=== PATIENT | male | born 1965 | race Caucasian/White ===

== ENCOUNTER → 2018-05-10 07:55 | Outpatient (CLI) | payer OTHER, MEDICAID, SELFPAY | PROVIDERS: PCP Family Medicine; Visit Provider Family Medicine | DX: M25.521 Pain in right elbow (principal); M25.522 Pain in left elbow; M54.32 Sciatica, left side ==

== ENCOUNTER → 2018-05-10 08:26 | Outpatient (CLI) | payer OTHER, MEDICAID, SELFPAY ==
--- NOTE | 2018-05-10 | DI.RAD.S_ITS ---
PROCEDURE: XR ELBOW RT MIN 3V INDICATIONS: BACK PAIN/ BILATERAL ELBOW PAIN TECHNIQUE: 3 views of the elbow were acquired. COMPARISON: [facility], CR, XR ELBOW LT MIN 3V, 05/10/2018, 8:42. FINDINGS: Bones: No fractures or dislocations. No suspicious bony lesions. Soft tissues: No elbow joint effusion. No suspicious soft tissue calcifications. IMPRESSION: No visualized acute fracture or dislocation. However, if clinical concern and/or pain persist, short interval imaging followup in 7-10 days is recommended, as occult injury cannot be definitively excluded. Dictated by: Veronique Tovar M.D. on 05/10/2018 at 10:54 Approved by: Veronique Tovar M.D. on 05/10/2018 at 10:54
--- NOTE | 2018-05-10 | DI.RAD.S_ITS ---
PROCEDURE: XR LUMBAR SPINE 2-3V INDICATIONS: BACK PAIN/ BILATERAL ELBOW PAIN TECHNIQUE: 3 views of the lumbar spine were acquired. COMPARISON: None. FINDINGS: Bones: 5 [id number] vertebrae are present. There is multilevel trace retrolisthesis throughout the lumbar spine. There is mild to moderate disc space narrowing throughout the lumbar spine most notable at L5-S1. Moderate foraminal narrowing is present at L4-5 and L5-S1, mild at L3-4. No vertebral body compression fractures. No suspicious bony lesions. Soft tissues: Overlying bowel gas pattern is normal. No suspicious soft tissue calcifications. IMPRESSION: Multilevel degenerative changes most significant at L5-S1 as above. Dictated by: Veronique oTvar M.D. on 05/10/2018 at 10:47 Approved by: Veronique Tovar M.D. on 05/10/2018 at 10:51
--- NOTE | 2018-05-10 | DI.RAD.S_ITS ---
PROCEDURE: XR ELBOW LT MIN 3V INDICATIONS: BACK PAIN/ BILATERAL ELBOW PAIN TECHNIQUE: 3 views of the elbow were acquired. COMPARISON: [facility], CR, XR ELBOW RT MIN 3V, 05/10/2018, 8:42. FINDINGS: Bones: Small areas of ossification are noted adjacent to the left medial humeral condyle. No suspicious bony lesions. Soft tissues: No elbow joint effusion. No suspicious soft tissue calcifications. IMPRESSION: Small areas of ossification are noted adjacent to the medial humeral condyle. This could represent old avulsion injury. Dictated by: Veronique Tovar M.D. on 05/10/2018 at 10:51 Approved by: Veronique Tovar M.D. on 05/10/2018 at 10:54
== END ==
PROVIDERS: PCP Family Medicine; Visit Provider Family Medicine
DX: M25.521 Pain in right elbow (principal); M25.522 Pain in left elbow; M54.32 Sciatica, left side; M47.817 Spondylosis without myelopathy or radiculopathy, lumbosacral region; M47.816 Spondylosis without myelopathy or radiculopathy, lumbar region
CPT/HCPCS: 72100; 73080

== ENCOUNTER 2018-05-27 09:41 | Emergency (ER) | payer OTHER, MEDICAID, SELFPAY ==
[2018-05-27 09:45] VITALS: BP 157/106; PULSE 88; RESP 14; TEMP 37; O2SAT 99
--- NOTE | 2018-05-27 09:57 | DI.RAD.S_ITS ---
PROCEDURE: XR RIBS RT MIN 3V W CXR 1V INDICATIONS: fall w/ right anterior chest wall pain. TECHNIQUE: 2 views of the right ribs were acquired, along with a single view chest. COMPARISON: None. FINDINGS: Surgical changes and devices: None. Bones and chest wall: No dislocations. No suspicious bony lesions. Overlying soft tissues appear unremarkable. There is a definite nondisplaced right lateral seventh rib fracture and a slightly displaced right lateral ninth rib fracture, without adjacent pneumothorax. Lungs and pleura: No pleural effusions or pneumothorax. Lungs appear clear. Mediastinum: Mediastinal contours appear normal. Heart size is normal. IMPRESSION: Definite right seventh and ninth acute appearing rib fractures without pneumothorax, minimally displaced each. There likely is also in eighth rib fracture between but not visualized by this study. Dictated by: Glenroy Peter M.D. on 05/27/2018 at 10:28 Approved by: Glenroy Peter M.D. on 05/27/2018 at 10:30
[2018-05-27 10:54] VITALS: BP 158/100; PULSE 68; RESP 18; O2SAT 98
--- NOTE | 2018-05-27 10:58 | ED.FALL ---
HPI - Fall General Chief Complaint: Fall Stated Complaint: Fell two days ago Time Seen by Provider: 05/27/18 09:43 Source: patient Mode of arrival: ambulatory Limitations: no limitations History of Present Illness HPI Narrative: 52M former smoker and daily drinker presents to the emergency department with a chief complaint of right anterior chest pain secondary to mechanical fall 2 days ago. He has sharp and stabbing right anterior chest pain, worse with deep breaths and movement, improvement with rest. He denies any hemoptysis. He denies any other injury and is otherwise well and free of complaint MD complaint: fall Onset (ago): day(s) Fall from: standing Fall witnessed: no Place fall occurred: home Loss of consciousness: unsure Prolonged down time: no Symptoms prior to fall: none Context: tripped/slipped and alcohol use Location of injury: chest Related Data Home Medications Medication Instructions Recorded Confirmed losartan-hydrochlorothiazide 1 tab PO DAILY 05/27/18 05/27/18 Previous Rx's Medication Instructions Recorded ketorolac 10 mg PO Q6H PRN #14 tab 05/27/18 Allergies Allergy/AdvReac Type Severity Reaction Status Date / Time No Known Drug Allergies Allergy Verified 05/27/18 09:56 Review of Systems Constitutional Denies chills, Denies fever(s), Denies lethargy and Denies weakness Eyes Denies change in vision, Denies eye discharge, Denies irritation and Denies loss of vision ENT Ears, Nose, Mouth, and Throat: Denies change in voice, Denies neck pain and Denies sore throat Cardiovascular Reports chest pain, Denies irregular heart rhythm, Denies lightheadedness, Denies palpitations, Denies dyspnea, Denies dyspnea on exertion and Denies orthopnea Respiratory Denies cough, Reports pain on inspiration, Reports pain with cough, Denies dyspnea, Denies dyspnea on exertion and Denies wheezing Gastrointestinal Gastrointestinal: Denies abdominal pain, Denies change in bowel habits, Denies diarrhea, Denies nausea and Denies vomiting Genitourinary Denies hematuria, Denies flank pain, Denies urinary incontinence and Denies urinary urgency Musculoskeletal Denies neck pain Integumentary/Breasts Denies pruritus, Denies erythema, Denies rash and Denies wounds Neurologic Denies confusion, Denies loss of vision and Denies weakness Psychiatric Denies anxiety, Denies confusion, Denies depression, Denies homicidal ideation and Denies suicidal ideation Endocrine Denies palpitations Hematologic/Lymphatic Denies easy bruising Allergic/Immunologic Denies wheezing Exam Narrative Exam Narrative: GEN: AOx3 and in mild distress, splinting his right-sided ribs with a pillow EYES: Pupils are equal, round, and reactive to light and accommodation. Extraoccular muscles are intact bilaterally. There is no subconjunctival hemorrhage or exudate. CHEST: Lungs are clear to auscultation bilaterally and free of wheezes, rales, or rhonchi. Heart rate is regular rhythm, there are no murmurs, clicks, rubs, or gallops. Sharp and stabbing right lateral chest pain to palpation ABD: Abdomen is soft and nontender. There is no guarding or rebound. Bowel sounds are normal in all 4 quadrants. There is no mass or organomegaly. EXT: Full painless ROM of all extremities with no loss of sensation or strength. SKIN: Warm, pink, and dry. No erythema or rash Initial Vital Signs Initial Vital Signs: Vital Signs Temperature 98.6 F 05/27/18 09:45 Pulse Rate 88 05/27/18 09:45 Respiratory Rate 14 05/27/18 09:45 Blood Pressure 157/106 H 05/27/18 09:45 Pulse Oximetry 99 05/27/18 09:45 [facility] Medical History Alcohol abuse (Acute) Hypertension (Acute) Social History (System 05/11/18 @ 11:06 by June Negron) Smoking Status: Current every day smoker Social History Smoking Status: Current every day smoker Course Orders Ordered: ED Orders 05/27/18 09:57 XR ribs RT min 3V w CXR1V Stat Vital Signs - 8 hr 05/27/18 09:45 05/27/18 10:54 Temperature 98.6 F Pulse Rate 88 68 Respiratory Rate 14 18 Blood Pressure 157/106 H Blood Pressure [Left Arm] 158/100 H Pulse Oximetry 99 98 MDM - Fall Imaging Data Chest x-ray: Radiologist's impression: XRay Report Signed Patient: NishantkarenZurdo LAURI#: [id number] : 1965Acct:[id number] Age/Sex: 52 / MDate of Service: 05/27/18 Loc: ED Accession Number: [id number] Procedure: XR ribs RT min 3V w CXR1V Ordering Provider: Van Wing D.O. PROCEDURE: XR RIBS RT MIN 3V W CXR 1V INDICATIONS: fall w/ right anterior chest wall pain. TECHNIQUE: 2 views of the right ribs were acquired, along with a single view chest. COMPARISON: None. FINDINGS: Surgical changes and devices: None. Bones and chest wall: No dislocations. No suspicious bony lesions. Overlying soft tissues appear unremarkable. There is a definite nondisplaced right lateral seventh rib fracture and a slightly displaced right lateral ninth rib fracture, without adjacent pneumothorax. Lungs and pleura: No pleural effusions or pneumothorax. Lungs appear clear. Mediastinum: Mediastinal contours appear normal. Heart size is normal. IMPRESSION: Definite right seventh and ninth acute appearing rib fractures without pneumothorax, minimally displaced each. There likely is also in eighth rib fracture between but not visualized by this study. Dictated by: Glenroy Peter M.D. on 05/27/2018 at 10:28 Discharge Plan Departure Patient Disposition: Home Clinical Impression: Fracture, ribs Qualifiers: Encounter type: initial encounter Rib fracture type: multiple ribs Fracture type: closed Laterality: right Qualified Code(s): S22.41XA - Multiple fractures of ribs, right side, initial encounter for closed fracture Discharge Date/Time: 05/27/18 11:00 Interventions: ED Discharge Assessment Last Done: 05/27/18 10:59 Activity Restrictions/Additional Instructions: *You have been diagnosed with [rib fractures ] *What to do: *Take medications as directed: Your prescription is been electronically transmitted to [facility] at your request *Follow up with your primary care provider in 2-3 days, call for an appointment. Let them know you were seen in the Emergency Department and that we ask that you be seen in follow up *Return to ER if you should have any new, worsening or concerning symptoms Prescriptions: New ketorolac 10 mg tablet 10 mg PO Q6H PRN (Reason: pain) Qty: 14 RF: 0 No Action losartan-hydrochlorothiazide 100-25 mg tablet 1 tab PO DAILY RF: 0 Referrals: Jeffery Santiago MD [Primary Care Provider] - Stand Alone Forms: Work Release Note
== END 2018-05-27 11:00 | disposition home or self-care (01) ==
PROVIDERS: Emergency Provider Emergency Medicine; PCP Family Medicine
DX: S22.41XA Multiple fractures of ribs, right side, initial encounter for closed fracture (principal); W19.XXXA Unspecified fall, initial encounter
CPT/HCPCS: 71101; 99282; 99283

== ENCOUNTER → 2019-04-19 09:00 | Outpatient (CLI) | payer OTHER, MEDICAID, SELFPAY ==
--- NOTE | 2019-04-19 | DI.US.S_ITS ---
PROCEDURE: US ABDOMEN COMPLETE INDICATIONS: ABNORMAL LABS TECHNIQUE: Real-time scanning was performed of the abdominal and retroperitoneal organs, with image documentation. COMPARISON: None. FINDINGS: Liver: Liver is normal in size and homogeneous in echotexture diffusely hyperechoic consistent with fatty infiltration. Gallbladder: The gallbladder contains sludge without identifiable stones. No pericholecystic free fluid or evidence of acute cholecystitis is present. Biliary ducts: Intrahepatic bile ducts are non-dilated. Extrahepatic bile duct caliber measures 5.8 mm. Normal is 6-7 mm or less in diameter, or 10 mm or less post-cholecystectomy. Pancreas: Poorly seen due to bowel gas. Spleen: Spleen is normal in size and homogeneous in echotexture. Kidneys: Kidneys are normal in size and echotexture. Right kidney measures 12.7 cm long; left kidney measures 12.7 cm long. No hydronephrosis or nephrolithiasis. No solid masses. Aorta: Visualized aorta is normal in caliber at less than 3 cm. Iliacs: Proximal common iliac arteries are normal in caliber at less than 2.5 cm. IVC: Intrahepatic inferior vena cava is patent. Miscellaneous: No free abdominal fluid. IMPRESSION: Relatively prominent fatty infiltration throughout the liver, sludge within the gallbladder lumen but there is no evidence of acute cholecystitis or biliary obstruction. Dictated by: Glenroy Peter M.D. on 04/19/2019 at 14:06 Approved by: Glenroy Peter M.D. on 04/19/2019 at 14:08
== END ==
PROVIDERS: PCP Family Medicine; Referring Provider Family Medicine; Visit Provider Family Medicine
DX: R74.0 Nonspecific elevation of levels of transaminase and lactic acid dehydrogenase [LDH] (principal); K82.8 Other specified diseases of gallbladder; K76.0 Fatty (change of) liver, not elsewhere classified
CPT/HCPCS: 76700

== ENCOUNTER → 2020-01-19 13:25 | Outpatient (CLI) | payer OTHER, MEDICAID, SELFPAY ==
--- NOTE | 2020-01-19 | DI.NM.S_ITS ---
PROCEDURE: NM HIDA WITH CCK PHARMACEUTICAL: 5.6 mCi Tc-99m mebrofenin IV; 2.4 mcg CCK IV. INDICATIONS: Epigastric pain TECHNIQUE: Following intravenous administration of Tc-99m mebrofenin, sequential anterior abdominal images were obtained. To evaluate the contractile response of the gallbladder in response to Cholecystokinin (CCK), sincalide (0.02 ?g/kg) was administered by slow intravenous infusion approximately 60 minutes after the administration of the radiopharmaceutical. Sequential imaging was continued for 30 minutes after the start of CCK infusion. Gallbladder ejection fraction was calculated. COMPARISON: [facility], , US ABDOMEN COMPLETE, 04/19/2019, 9:16. FINDINGS: Biliary scan: There is normal tracer uptake and excretion by the liver. There is normal visualization of the intrahepatic ducts, common bile duct, and gallbladder. There is normal tracer transit into the duodenum. Noted is made of mild bile reflux into the stomach. CCK stimulation: There is normal contractile response of the gallbladder to CCK infusion. The calculated gallbladder ejection fraction is 87%; normal values are above 35%. IMPRESSION: 1. Normal filling of gallbladder. No evidence for acute cholecystitis. 2. Normal contractile response of gallbladder to CCK stimulation. Dictated by: Chad Vargas M.D. on 01/19/2020 at 15:52 Approved by: Chad Vargas M.D. on 01/19/2020 at 15:54
== END ==
PROVIDERS: PCP Family Medicine; Referring Provider Family Medicine; Visit Provider Family Medicine
DX: R10.13 Epigastric pain (principal)
CPT/HCPCS: 78227; A9537; J2805

== ENCOUNTER 2021-03-21 11:29 | Emergency (ER) | payer OTHER, MEDICAID, SELFPAY ==
[2021-03-21 11:53] VITALS: BP 120/67; PULSE 101; RESP 14; TEMP 37.1; O2SAT 96; BMI 38.1
[2021-03-21 12:14] LABS: Amorphous Sediment Urine 1+; RBC Urine None Seen (0-5/HPF); WBC Urine 5-10/HPF (0-5/HPF)
[2021-03-21 12:15] LABS: Bacteria Urine None Seen
[2021-03-21 13:26] LABS: COVID19 -Nasal RAPID Negative (Negative)
--- NOTE | 2021-03-21 14:42 | DI.CT.S_ITS ---
PROCEDURE: CT ABDOMEN PELVIS WO CON INDICATIONS: Prostate enlarged - BACK PAIN - DARK URINE TECHNIQUE: Noncontrast 5 mm thick sections acquired from the diaphragms to the symphysis. 5 mm coronal and sagittal reformats were then performed. For radiation dose reduction, the following was used: automated exposure control, adjustment of mA and/or kV according to patient size. COMPARISON: None. FINDINGS: Image quality: Excellent. ABDOMEN: Lung bases: Lung bases are clear. Heart size is normal. Mild scattered atherosclerotic calcifications of the coronary arteries are noted. Solid organs: Liver is enlarged in size. There is diffuse hypoattenuation of the liver parenchyma relative to the spleen compatible with hepatic steatosis. Gallbladder is mildly distended. There is a small punctate density near the gallbladder fundus likely representing a gallstone. No CT evidence for acute cholecystitis . Pancreas is normal in contours. Spleen is normal in size. No adrenal nodules. Kidneys are normal in size, without hydronephrosis. Bilateral renal stones are seen measuring up to 7 mm on the right and 3 mm on the left. Both ureters are normal in course and caliber. No ureteral stones seen. No urinary bladder stones identified. Peritoneum and bowel: Unenhanced bowel loops demonstrate normal wall thickness and caliber. No free fluid or air. Scattered colonic diverticula without evidence for acute diverticulitis. Normal appendix. Nodes and vessels: No retroperitoneal or mesenteric adenopathy by size criteria. Aorta and inferior vena cava are normal in caliber. Atherosclerotic calcifications of the abdominal aorta. Miscellaneous: No ventral hernias. PELVIS: Genitourinary: Bladder wall thickness is normal. No bladder stone seen. There is mild prostatomegaly. Miscellaneous: No pelvic adenopathy. Small bilateral fat containing inguinal hernias, larger on the left without acute inflammatory changes. Bones: No acute vertebral body compression fractures. Multilevel spondylitic changes throughout the imaged spine. No suspicious osseous lesions. IMPRESSION: 1. Bilateral nonobstructing nephroliths measuring up to 7 mm on the right and 3 mm on the left. No evidence for obstructive uropathy. No ureteral stones identified. 2. Hepatic steatosis. 3. Cholelithiasis without CT evidence for acute cholecystitis. 4. Colonic diverticulosis without acute diverticulitis. 5. Atherosclerosis. Dictated by: Henrry Cagle M.D. on 03/21/2021 at 15:12 Approved by: Henrry Cagle M.D. on 03/21/2021 at 15:20
--- NOTE | 2021-03-21 15:07 | ED.MALEGU ---
HPI - Male Genitourinary <Ryan Sotomayor PA-C - Last Filed: 03/21/21 19:25> General Chief complaint: Urogenital-Male Stated complaint: Incontenince Time Seen by Provider: 03/21/21 14:22 Source: patient Mode of arrival: Ambulatory History of Present Illness HPI Narrative: Patient is a 55-year-old male who presents to the ED reporting a decrease in urine output. He reports yesterday morning he had a small amount of urine in the toilet of which he was a dark color he became concerned contacted his PCP was seen today. He was told to come to the emergency room for further evaluation. He denies any abdominal pain nausea vomiting or diarrhea however he does admit that it is difficult to start his urination stream and in the stream is small. He also reports that he has been a 6 pack a day alcoholic for many years and has recently stopped drinking as of 2 days ago. He also has decreased his usage of cigarettes, he reports pack and a half to 2 packs a day and over the last 2 days has only smoked about 10 cigarettes. No reported headache blurred vision cough shortness of breath congestion. No recent trauma or fall Related Data Home Medications Medication Instructions Recorded Confirmed losartan 100 1 tab PO DAILY 05/27/18 05/27/18 mg-hydrochlorothiazide 25 mg tablet Previous Rx's Medication Instructions Recorded ketorolac 10 mg tablet 10 mg PO Q6H PRN #14 tab 05/27/18 Allergies Allergy/AdvReac Type Severity Reaction Status Date / Time No Known Drug Allergies Allergy Verified 03/21/21 11:53 Review of Systems <Ryan Sotomayor PA-C - Last Filed: 03/21/21 19:25> Review of Systems ROS Unobtainable: All systems reviewed & are unremarkable except as noted in HPI and below Constitutional Constitutional: Denies chills, Denies fatigue, Denies fever(s), Denies frequent falls, Denies lethargy and Denies weakness Eyes Eyes: Denies change in vision, Denies eye discharge, Denies irritation and Denies loss of vision ENT Ears, Nose, Mouth, and Throat: Denies change in voice, Denies dizziness, Denies neck pain, Denies sore throat and Denies throat swelling Cardiovascular Cardiovascular: Denies chest pain, Denies irregular heart rhythm, Denies lightheadedness, Denies palpitations, Denies dyspnea, Denies dyspnea on exertion and Denies orthopnea Respiratory Respiratory: Denies cough, Denies dyspnea, Denies dyspnea on exertion and Denies wheezing Gastrointestinal Gastrointestinal: Denies abdominal pain, Denies change in bowel habits, Denies diarrhea, Denies nausea and Denies vomiting Genitourinary Genitourinary: Reports hematuria, Reports difficulty urinating, Denies flank pain, Denies urinary incontinence and Denies urinary urgency Musculoskeletal Musculoskeletal: Denies back pain, Denies muscle weakness, Denies neck pain, Denies numbness and Denies tingling Integumentary/Breasts Skin/Breast: Denies pruritus, Denies erythema, Denies rash and Denies wounds Neurologic Neurologic: Denies behavioral changes, Denies confusion, Denies dizziness, Denies frequent falls, Denies loss of vision, Denies numbness, Denies tingling and Denies weakness Psychiatric Psychiatric: Denies anxiety, Denies behavioral changes, Denies confusion, Denies depression, Denies homicidal ideation and Denies suicidal ideation Endocrine Endocrine: Denies fatigue, Denies flushing and Denies palpitations Hematologic/Lymphatic Hematologic/Lymphatic: Denies easy bruising Allergic/Immunologic Allergic/Immunologic: Denies urticaria, Denies throat swelling and Denies wheezing Patient History <Ryan Sotomayor PA-C - Last Filed: 03/21/21 19:25> Medical History (Updated 03/21/21 @ 19:25 by Ryan Sotomayor PA-C) Alcohol abuse Hypertension Social History Smoking Status: Current every day smoker Smoking Status: Current every day smoker alcohol intake frequency: 3 or more drinks per day Substance Use Type: marijuana Exam <Ryan Sotomayor PA-C - Last Filed: 03/21/21 19:25> Initial Vital Signs Initial Vital Signs: Vital Signs Temperature 98.7 F 03/21/21 11:53 Pulse Rate 101 H 03/21/21 11:53 Respiratory Rate 14 03/21/21 11:53 Blood Pressure 120/67 03/21/21 11:53 Pulse Oximetry 96 03/21/21 11:53 Const General: cooperative, healthy appearing and comfortable Nutritional Appearance: average body habitus HENMT Head: normal to inspection and normocephalic Ears: hearing grossly normal bilaterally Nose: external nose normal Face and sinus: normal facial exam Resp Effort & Inspection: normal respiratory effort Auscultation: clear to auscultation bilaterally Percussion: percussion normal Cardio Palpation: normal PMI Rate: regular rate Rhythm: regular rhythm Heart Sounds: S1 normal and S2 normal GI Inspection: normal to inspection Palpation: soft Percussion: normal to percussion Auscultation: normal bowel sounds Rectal Exam: visual inspection normal Course <Ryan Sotomayor PA-C - Last Filed: 03/21/21 19:25> Orders Ordered: Discontinued Medications Sodium Chloride (Normal Saline 0.9%) 1,000 mls @ 1,000 mls/hr IV BOLUS ONE Stop: 03/21/21 16:54 Last Infusion: 03/21/21 17:02 Dose: 0 mls/hr Documented by: Admin: 03/21/21 15:55 Dose: 1,000 mls/hr Documented by: KIKI Sodium Chloride (Normal Saline 0.9%) 1,000 mls @ 1,000 mls/hr IV BOLUS ONE Stop: 03/21/21 18:24 Last Infusion: 03/21/21 19:07 Dose: 0 mls/hr Documented by: Admin: 03/21/21 17:28 Dose: 1,000 mls/hr Documented by: KIKI Reevaluation(s) Reevaluation #1: Patient responding well to IV fluids reporting that his energy level is increased he was able to urinate after a L of fluid. Vital Signs Vital signs: Vital Signs - 8 hr 03/21/21 11:53 Temperature 98.7 F Pulse Rate 101 H Respiratory Rate 14 Blood Pressure 120/67 Pulse Oximetry 96 MDM - Male Genitourinary <Ryan Sotomayor PA-C - Last Filed: 03/21/21 19:25> Differential Diagnosis Differential diagnosis: Likely other Lab Data Result diagrams: 03/21/21 15:10 03/21/21 18:47 Labs: Lab Results 03/21/21 03/21/21 03/21/21 Range/Units 11:44 11:58 15:10 WBC 7.3 (4.5-11.0) X10^3/uL RBC 4.87 (4.5-5.9) X10^6/uL Hgb 15.0 (13.5-17.5) g/dL Hct 43.1 (41-53) % MCV 88.6 (80-100) fL MCH 30.8 (26-34) PG MCHC 34.8 (30-36) % RDW 13.3 (11.6-14.8) % Plt Count 127 L (150-400) X10^3/uL Neut % (Auto) 56.9 (50-75) % Lymph % (Auto) 32.1 (25-40) % [place] % (Auto) 8.4 (3-14) % Eos % (Auto) 1.8 L (2-4) % Baso % (Auto) 0.8 (0-2) % Neut # (Auto) 4200 (6739-0543) /uL Lymph # (Auto) 2400 (8441-0000) /uL [place] # (Auto) 600 (0-900) /uL Eos # (Auto) 100 (0-450) /uL Baso # (Auto) 100 (0-100) /uL Sodium (137-145) mmol/L Potassium (3.4-5.1) mmol/L Chloride (98-107) mmol/L Carbon Dioxide (22-32) mmol/L BUN (9-20) mg/dL Creatinine (0.66-1.25) mg/dL Estimated GFR (>60) mL/min BUN/Creatinine Ratio (6-22) Glucose (70-100) mg/dL Calcium (8.4-10.2) mg/dL Total Bilirubin (0.2-1.3) mg/dL AST (17-59) IU/L ALT (<50) IU/L Alkaline Phosphatase (38-126) U/L Total Protein (6.3-8.2) g/dL Albumin (3.5-5.0) g/dL Globulin (1.7-4.1) g/dL Albumin/Globulin Ratio (1.0-2.8) Urine RBC None seen (0-5/HPF) Urine WBC 5-10/hpf H (0-5/HPF) Amorphous Sediment 1+ Urine Bacteria None seen (None) Ur Culture Indicated? Culture not indicate SARS-CoV-2 (PCR) Negative (Negative) 03/21/21 03/21/21 Range/Units 15:10 18:47 WBC (4.5-11.0) X10^3/uL RBC (4.5-5.9) X10^6/uL Hgb (13.5-17.5) g/dL Hct (41-53) % MCV (80-100) fL MCH (26-34) PG MCHC (30-36) % RDW (11.6-14.8) % Plt Count (150-400) X10^3/uL Neut % (Auto) (50-75) % Lymph % (Auto) (25-40) % [place] % (Auto) (3-14) % Eos % (Auto) (2-4) % Baso % (Auto) (0-2) % Neut # (Auto) (9257-6382) /uL Lymph # (Auto) (1714-5183) /uL [place] # (Auto) (0-900) /uL Eos # (Auto) (0-450) /uL Baso # (Auto) (0-100) /uL Sodium 130 L 132 L (137-145) mmol/L Potassium 3.7 3.2 L (3.4-5.1) mmol/L Chloride 99 104 (98-107) mmol/L Carbon Dioxide 24 24 (22-32) mmol/L BUN 21 H 20 (9-20) mg/dL Creatinine 3.51 H 3.00 H (0.66-1.25) mg/dL Estimated GFR 18.3 L 21.9 L (>60) mL/min BUN/Creatinine Ratio 6.0 6.7 (6-22) Glucose 110 H 100 (70-100) mg/dL Calcium 9.5 8.8 (8.4-10.2) mg/dL Total Bilirubin 1.6 H 1.5 H (0.2-1.3) mg/dL AST 221 H 180 H (17-59) IU/L ALT 147 H 122 H (<50) IU/L Alkaline Phosphatase 131 H 105 (38-126) U/L Total Protein 6.9 6.3 (6.3-8.2) g/dL Albumin 3.9 3.3 L (3.5-5.0) g/dL Globulin 3.0 3.0 (1.7-4.1) g/dL Albumin/Globulin Ratio 1.3 1.1 (1.0-2.8) Urine RBC (0-5/HPF) Urine WBC (0-5/HPF) Amorphous Sediment Urine Bacteria (None) Ur Culture Indicated? SARS-CoV-2 (PCR) (Negative) Urine Dip Bedside Urine Glucose Negative Bedside Urine Bilirubin - Negative Bedside Urine Ketone - Negative Urine Specific [place] 1.020 Bedside Urine Occult Blood - Negative Bedside Urine pH 5.5 Bedside Urine Protein + 30 Bedside Urine Urobilinogen - Negative Bedside Urine Nitrite - Negative Bedside Urine Leukocytes - Negative Esterase Imaging Data CT scan - abdomen/pelvis: Radiologist's Impression: PROCEDURE:? CT ABDOMEN PELVIS WO CON ? INDICATIONS:? Prostate enlarged - BACK PAIN - DARK URINE ? TECHNIQUE:? Noncontrast 5 mm thick sections acquired from the diaphragms to the symphysis.? 5 mm coronal and sagittal reformats were then performed.? For radiation dose reduction, the following was used:? automated exposure control, adjustment of mA and/or kV according to patient size.? ? COMPARISON:? None. ? FINDINGS:? Image quality:? Excellent.? ? ABDOMEN:? Lung bases:? Lung bases are clear.? Heart size is normal.? Mild scattered atherosclerotic calcifications of the coronary arteries are noted.? ? Solid organs:? Liver is enlarged in size.? There is diffuse hypoattenuation of the liver parenchyma relative to the spleen compatible with hepatic steatosis. Gallbladder is mildly distended.? There is a small punctate density near the gallbladder fundus likely representing a gallstone.? No CT evidence for acute cholecystitis .? Pancreas is normal in contours.? Spleen is normal in size.? No adrenal nodules.? Kidneys are normal in size, without hydronephrosis.? Bilateral renal stones are seen measuring up to 7 mm on the right and 3 mm on the left.? Both ureters are normal in course and caliber.? No ureteral stones seen.? No urinary bladder stones identified. ? Peritoneum and bowel:? Unenhanced bowel loops demonstrate normal wall thickness and caliber.? No free fluid or air.? Scattered colonic diverticula without evidence for acute diverticulitis.? Normal appendix. ? Nodes and vessels:? No retroperitoneal or mesenteric adenopathy by size criteria.? Aorta and inferior vena cava are normal in caliber.? Atherosclerotic calcifications of the abdominal aorta. ? Miscellaneous:? No ventral hernias.? ? ? PELVIS:? Genitourinary:? Bladder wall thickness is normal.? No bladder stone seen.? There is mild prostatomegaly. ? Miscellaneous:? No pelvic adenopathy.? Small bilateral fat containing inguinal hernias, larger on the left without acute inflammatory changes. ? Bones:? No acute vertebral body compression fractures. Multilevel spondylitic changes throughout the imaged spine.? No suspicious osseous lesions. ? IMPRESSION:? ? 1. Bilateral nonobstructing nephroliths measuring up to 7 mm on the right and 3 mm on the left.? No evidence for obstructive uropathy.? No ureteral stones identified. ? 2. Hepatic steatosis. ? 3. Cholelithiasis without CT evidence for acute cholecystitis. ? 4. Colonic diverticulosis without acute diverticulitis. ? 5.? Atherosclerosis. ? ? Dictated by: Henrry Cagle M.D. on 03/21/2021 at 15:12 ? ? Approved by: Henrry Cagle M.D. on 03/21/2021 at 15:20?? MDM Narrative Medical decision making narrative: Patient was evaluated today for decreased urine output patient was seen at his PCP office today and was told to come to the emergency room. Patient reports that yesterday he had a small amount of urine that came out. He denies any significant pain no penile discharge or dysuria. He reports having difficulty with starting urination and weak stream and his urine appeared dark. His workup today revealed evidence of impaired renal function and impaired liver function. In discussing this with the patient he is aware of his previous kidney difficulties as well as his liver issues. He is a chronic alcoholic and a 2 pack-a-day smoker for many years. I counseled patient about quitting drinking and options that he should consider and he will need to explore those options on an outpatient basis. Patient was given 2 L of IV fluids and stated that he feels significantly better. Repeat chemistry shows an improvement in his renal function however it is still significantly impaired. Patient is requesting to be discharged home and will follow-up with his PCP for referral to nephrology. Discharge Plan Departure Patient Disposition: Home Clinical Impression: Acute renal impairment, Abnormal finding on liver function Instructions: DI for Kidney Failure, DI for Alcohol Use Disorder, DI for Nonalcoholic Fatty Liver Disease Activity Restrictions/Additional Instructions: You were evaluated today for your kidney and liver function. Is is essential that you quit drinking alcohol and that she seek supportive treatment for your drinking problem. 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 You need to contact her PCP on Wednesday and make arrangements for follow-up and referral. Increase your p.o. fluid intake avoid any further alcohol consumption return to the ED as needed Prescriptions: No Action losartan-hydrochlorothiazide 100-25 mg tablet 1 tab PO DAILY 0RF ketorolac 10 mg tablet 10 mg PO Q6H PRN (Reason: pain) Qty: 14 0RF Referrals: Jeffery Santiago MD [Primary Care Provider] -
[2021-03-21 15:20] LABS: Add Manual Diff / Slide Review NO; Basophils Absolute Auto 100 /uL (0-100); Basophils Percent Auto 0.8 % (0-2); Eosinophils Absolute Auto 100 /uL (0-450); Eosinophils Percent Auto 1.8 % (2-4); Hematocrit 43.1 % (41-53); Lymphocytes Absolute Auto 2400 /uL (1100-4500); Lymphocytes Percent Auto 32.1 % (25-40); Mean Corpuscular HGB Conc 34.8 % (30-36); Mean Corpuscular Hemoglobin 30.8 PG (26-34); Mean Corpuscular Volume 88.6 fL (80-100); Monocytes Absolute Auto 600 /uL (0-900); Monocytes Percent Auto 8.4 % (3-14); Neutrophils Absolute Auto 4200 /uL (1500-7000); Neutrophils Percent Auto 56.9 % (50-75); Platelet Count 127 X10^3/uL (150-400); Red Blood Cell Count 4.87 X10^6/uL (4.5-5.9); Red Cell Distribution Width 13.3 % (11.6-14.8); White Blood Cell Count 7.3 X10^3/uL (4.5-11.0)
[2021-03-21 15:34] LABS: Alanine Aminotransferase 147 IU/L (<50); Albumin 3.9 g/dL (3.5-5.0); Albumin Globulin Ratio 1.3 (1.0-2.8); Alkaline Phosphatase 131 U/L (38-126); Aspartate Aminotransferase 221 IU/L (17-59); Bilirubin Total 1.6 mg/dL (0.2-1.3); Blood Urea Nitrogen 21 mg/dL (9-20); Calcium 9.5 mg/dL (8.4-10.2); Carbon Dioxide 24 mmol/L (22-32); Chloride 99 mmol/L (98-107); Estimated Glomerular Filt Rate 18.3 mL/min (>60); Glucose 110 mg/dL (70-100); HEMOLYSIS < 15 (0-50); Potassium 3.7 mmol/L (3.4-5.1); Sodium 130 mmol/L (137-145); Total Protein 6.9 g/dL (6.3-8.2)
[2021-03-21] MEDS: SODIUM CHLORIDE 0.9% 1,000 ML 1000 ML IV ×2 (15:55→17:28)
[2021-03-21 19:05] LABS: Alanine Aminotransferase 122 IU/L (<50); Albumin 3.3 g/dL (3.5-5.0); Albumin Globulin Ratio 1.1 (1.0-2.8); Alkaline Phosphatase 105 U/L (38-126); Aspartate Aminotransferase 180 IU/L (17-59); BUN Creatinine Ratio 6.7 (6-22); Bilirubin Total 1.5 mg/dL (0.2-1.3); Blood Urea Nitrogen 20 mg/dL (9-20); Calcium 8.8 mg/dL (8.4-10.2); Carbon Dioxide 24 mmol/L (22-32); Chloride 104 mmol/L (98-107); Estimated Glomerular Filt Rate 21.9 mL/min (>60); Glucose 100 mg/dL (70-100); HEMOLYSIS < 15 (0-50); Potassium 3.2 mmol/L (3.4-5.1); Sodium 132 mmol/L (137-145); Total Protein 6.3 g/dL (6.3-8.2)
[2021-03-21 19:34] VITALS: BP 119/77; PULSE 101; RESP 20; O2SAT 96
== END 2021-03-21 19:35 | disposition home or self-care (01) ==
PROVIDERS: Emergency Medicine; Emergency Provider Physician Assistant; PCP Family Medicine
DX: N28.9 Disorder of kidney and ureter, unspecified (principal); K76.89 Other specified diseases of liver; Z20.822 Contact with and (suspected) exposure to COVID-19; Z72.89 Other problems related to lifestyle
CPT/HCPCS: 36415; 51798; 74176; 80053; 81003; 81015; 85025; 87086; 87635; 96360; 96361; 99284; C9803

== ENCOUNTER 2022-03-30 09:36 | Emergency (ER) | payer OTHER, MEDICAID, SELFPAY ==
[2022-03-30] VITALS (14 sets, daily range): BP systolic 115–141; BP diastolic 69–93; PULSE 62–81; RESP 14–25; TEMP 36.4; O2SAT 93–97; BMI 36.9
--- NOTE | 2022-03-30 09:52 | DI.RAD.S_ITS ---
PROCEDURE: XR CHEST 2V INDICATIONS: SOB TECHNIQUE: 2 views of the chest were acquired. COMPARISON: None. FINDINGS: Surgical changes and devices: None. Lungs and pleura: Lungs are clear. No pleural effusions or pneumothorax. Mediastinum: Mediastinal contours are normal. Heart size is normal. Bones and chest wall: No suspicious bony abnormalities. Soft tissues appear unremarkable. IMPRESSION: No acute cardiopulmonary pathology. Dictated by: Jin Brandt M.D. on 03/30/2022 at 10:08 Approved by: Jin Brandt M.D. on 03/30/2022 at 10:10
[2022-03-30 10:00] LABS: Add Manual Diff / Slide Review NO; Basophils Absolute Auto 0 /uL (0-100); Basophils Percent Auto 0.6 % (0-2); Eosinophils Absolute Auto 200 /uL (0-450); Eosinophils Percent Auto 2.5 % (2-4); Hemoglobin 16.6 g/dL (13.5-17.5); Lymphocytes Absolute Auto 1400 /uL (1100-4500); Lymphocytes Percent Auto 19.2 % (25-40); Mean Corpuscular HGB Conc 34.5 % (30-36); Mean Corpuscular Hemoglobin 31.2 PG (26-34); Mean Corpuscular Volume 90.4 fL (80-100); Monocytes Absolute Auto 600 /uL (0-900); Monocytes Percent Auto 8.2 % (3-14); Neutrophils Absolute Auto 5100 /uL (1500-7000); Neutrophils Percent Auto 69.5 % (50-75); Platelet Count 185 X10^3/uL (150-400); Red Blood Cell Count 5.31 X10^6/uL (4.5-5.9); Red Cell Distribution Width 13.5 % (11.6-14.8); White Blood Cell Count 7.4 X10^3/uL (4.5-11.0)
[2022-03-30 10:09] LABS: Alanine Aminotransferase 40 IU/L (<50); Albumin 4.8 g/dL (3.5-5.0); Albumin Globulin Ratio 1.4 (1.0-2.8); Alkaline Phosphatase 106 U/L (38-126); Aspartate Aminotransferase 41 IU/L (17-59); BUN Creatinine Ratio 9.7 (6-22); Bilirubin Total 0.8 mg/dL (0.2-1.3); Blood Urea Nitrogen 7 mg/dL (9-20); C-Reactive Protein Quant < 0.5 mg/dL (<1.0); Calcium 9.8 mg/dL (8.4-10.2); Carbon Dioxide 23 mmol/L (22-32); Chloride 103 mmol/L (98-107); Creatine Kinase 85 U/L (55-170); Estimated Glomerular Filt Rate > 60 mL/min (>60); Globulin 3.4 g/dL (1.7-4.1); Glucose 102 mg/dL (70-100); HEMOLYSIS 17 (0-50); Lipase 596 U/L (23-300); Sodium 137 mmol/L (137-145); Total Protein 8.2 g/dL (6.3-8.2)
[2022-03-30 10:18] LABS: NT-proBNP (BNP-Adult 18+) 39 pg/mL (<125); Troponin I < 0.012 ng/mL (0.01-0.034)
--- NOTE | 2022-03-30 10:25 | ED_ITS ---
HPI - Chest Pain General Chief Complaint: Chest Pain Stated Complaint: Pain in chest, sweating last night Time Seen by Provider: 03/30/22 09:45 Source: patient Mode of arrival: Ambulatory Limitations: no limitations History of Present Illness HPI narrative: 56-year-old male smoker and heavy drinker presents with a chief complaint of a brief episode of sharp and stabbing central chest pain that started last night at about 4:00 p.m. and lasted 15 minutes. He was at rest when it started and he continued to be at rest for the duration. He denies any obvious provocation, palliation or radiation of his symptoms. He denies dizziness, weakness or lightheadedness but states that he felt hot before it happened so he took his sweatshirt off. He denies any cough or hemoptysis. He is had no nausea, vomiting or diarrhea. He states that he has been fatigued but denies any obvious exertional symptoms or exercise intolerance. He denies recent travel or injury. He states that he had eaten a large spaghetti dinner a few hours prior to this and if anything states that his symptoms felt burning in nature Related Data Home Medications Medication Instructions Recorded Confirmed losartan 100 1 tab PO DAILY 05/27/18 05/27/18 mg-hydrochlorothiazide 25 mg tablet Previous Rx's Medication Instructions Recorded ketorolac 10 mg tablet 10 mg PO Q6H PRN pain #14 tabs 05/27/18 hydrocodone 5 mg-acetaminophen 325 1 tab PO Q4-6H PRN pain #10 tabs 03/30/22 mg tablet ondansetron 4 mg disintegrating 4 mg PO TID-QID PRN nausea and 03/30/22 tablet vomiting #10 tabs Allergies Allergy/AdvReac Type Severity Reaction Status Date / Time No Known Drug Allergies Allergy Verified 03/21/21 11:53 Review of Systems Review of Systems Narrative: GENERAL: Denies chills, fatigue, malaise, fever, sweats. HEENT: Denies sinus pain, ear pain, sore throat, difficulty swallowing, dizziness. RESPIRATORY: Denies dyspnea, cough, wheezing, hemoptysis, sputum. CARDIOVASCULAR: See HPI GASTROINTESTINAL: Denies nausea, vomiting, abdominal pain, diarrhea, constipation, melena. : Denies dysuria, frequency, incontinence, hematuria, urinary retention. MUSCULOSKELETAL: denies weakness, joint pain, or bony pain SKIN: Denies rash, skin lesions, or other NEUROLOGIC: Denies weakness, headache, numbness, change in speech, confusion, seizures, incoordination. PSYCHIATRIC: No concerning psychosocial issues. 12 point review of systems is negative except for those stated above Patient History Medical History (Updated 03/31/22 @ 06:44 by Van Wing DO) Alcohol abuse Hypertension Social History Smoking Status: Current every day smoker Smoking Status: Current every day smoker alcohol intake frequency: 3 or more drinks per day Substance Use Type: marijuana Exam Narrative Exam Narrative: GENERAL: [56] year old patient appears stated age. Well-developed patient, in mild distress. HEAD: Atraumatic. Normocephalic. EYES: Pupils equal round and reactive. Extraocular motions intact. No scleral icterus. No injection or drainage. ENT: Nose without bleeding, purulent drainage. Throat without erythema, tonsillar hypertrophy or exudate. Airway patent. NECK: Trachea midline. Non tender CARDIOVASCULAR: Regular rate and rhythm without murmurs, gallops, or rubs. RESPIRATORY: Clear to auscultation. Breath sounds equal bilaterally. No wheezes, rales, or rhonchi. GASTROINTESTINAL: Abdomen soft, non-tender, nondistended. EXTREMITIES: No edema or joint tenderness. BACK: Nontender without deformity or crepitance. No flank tenderness. NEURO: AOx3. SKIN: No rash or erythema of visible areas Initial Vital Signs Initial Vital Signs: Vital Signs Temperature 97.6 F 03/30/22 09:43 Pulse Rate 81 03/30/22 09:43 Respiratory Rate 19 03/30/22 09:43 Blood Pressure 141/93 H 03/30/22 09:43 Pulse Oximetry 94 03/30/22 09:43 Oxygen Delivery Method 03/30/22 09:43 Scores HEART Score Heart Score history: Slightly Suspicious Heart Score EKG: Non-Specific repolarization disturbance Heart Score Age: 45-64 years old Heart Score risk factors: 1-2 risk factors Heart Score troponin: < or = to normal limit Heart Score Total: 3 Course Orders Ordered: ED Orders 03/30/22 09:45 C-Reactive Protein Quant Stat Complete Blood Count AUTO DIFF Stat Comprehensive Metabolic Panel Stat Lipase Stat NT-proBNP (BNP-Adult 18+) Stat Troponin & CK Cardiac Panel Stat 03/30/22 09:52 XR chest 2V Stat 03/30/22 09:53 EKG-12 Lead Stat 03/30/22 10:30 US abdomen limited Stat 03/30/22 11:58 COVID19 -Nasal RAPID/Pre-Proc Stat Consultations Consultation #1: discussed with Dr. Salgado. We have discussed history and physical, labs and imaging, she recommends clear liquids, then low-fat diet, symptomatic treatment and referral to her office for outpatient follow-up Vital Signs Vital signs: Vital Signs - 8 hr 03/30/22 09:43 03/30/22 09:44 03/30/22 09:44 Temperature 97.6 F Pulse Rate 81 79 Respiratory Rate 19 Blood Pressure 141/93 H 141/93 H Pulse Oximetry 94 95 Oxygen Delivery Method Room Air 03/30/22 09:45 03/30/22 10:05 03/30/22 10:15 Temperature Pulse Rate 81 68 65 Respiratory Rate 14 22 20 Blood Pressure Pulse Oximetry 95 96 95 Oxygen Delivery Method 03/30/22 10:30 03/30/22 11:00 Temperature Pulse Rate 65 66 Respiratory Rate 21 19 Blood Pressure Pulse Oximetry 93 94 Oxygen Delivery Method MDM - Chest Pain Lab Data 03/30/22 09:45 03/30/22 09:45 Labs: Lab Results 03/30/22 03/30/22 Range/Units 09:45 09:45 WBC 7.4 (4.5-11.0) X10^3/uL RBC 5.31 (4.5-5.9) X10^6/uL Hgb 16.6 (13.5-17.5) g/dL Hct 48.0 (41-53) % MCV 90.4 (80-100) fL MCH 31.2 (26-34) PG MCHC 34.5 (30-36) % RDW 13.5 (11.6-14.8) % Plt Count 185 (150-400) X10^3/uL Neut % (Auto) 69.5 (50-75) % Lymph % (Auto) 19.2 L (25-40) % Humphreys % (Auto) 8.2 (3-14) % Eos % (Auto) 2.5 (2-4) % Baso % (Auto) 0.6 (0-2) % Neut # (Auto) 5100 (3214-3285) /uL Lymph # (Auto) 1400 (7470-0289) /uL Humphreys # (Auto) 600 (0-900) /uL Eos # (Auto) 200 (0-450) /uL Baso # (Auto) 0 (0-100) /uL Sodium 137 (137-145) mmol/L Potassium 4.0 (3.4-5.1) mmol/L Chloride 103 (98-107) mmol/L Carbon Dioxide 23 (22-32) mmol/L BUN 7 L (9-20) mg/dL Creatinine 0.72 (0.66-1.25) mg/dL Estimated GFR > 60 (>60) mL/min BUN/Creatinine Ratio 9.7 (6-22) Glucose 102 H (70-100) mg/dL Calcium 9.8 (8.4-10.2) mg/dL Total Bilirubin 0.8 (0.2-1.3) mg/dL AST 41 (17-59) IU/L ALT 40 (<50) IU/L Alkaline Phosphatase 106 (38-126) U/L Total Creatine Kinase 85 (55-170) U/L CK-MB (CK-2) TNP CK-MB (CK-2) Rel Index TNP Troponin I < 0.012 (0.01-0.034) ng/mL C-Reactive Protein < 0.5 (<1.0) mg/dL NT-Pro-B Natriuret Pep 39 (<125) pg/mL Total Protein 8.2 (6.3-8.2) g/dL Albumin 4.8 (3.5-5.0) g/dL Globulin 3.4 (1.7-4.1) g/dL Albumin/Globulin Ratio 1.4 (1.0-2.8) Lipase 596 H (23-300) U/L Imaging Data Chest x-ray: Radiologist's Impression: [address] [address] XRay Report Signed Patient: Zurdo Vasquez MR#: [id number] : 1965 Acct:[id number] Age/Sex: 56 / M Date of Service: 03/30/22 Loc: ED Accession Number: [id number] ?? Procedure: XR chest 2V Ordering Provider: Van Wing D.O. PROCEDURE:? XR CHEST 2V ? INDICATIONS:? SOB ? TECHNIQUE:? 2 views of the chest were acquired.? ? COMPARISON:? None. ? FINDINGS:? ? Surgical changes and devices:? None.? ? Lungs and pleura:? Lungs are clear.? No pleural effusions or pneumothorax.? ? Mediastinum:? Mediastinal contours are normal.? Heart size is normal.? ? Bones and chest wall:? No suspicious bony abnormalities.? Soft tissues appear unremarkable.? ? IMPRESSION:? No acute cardiopulmonary pathology. ? ? Dictated by: Jin Brandt M.D. on 03/30/2022 at 10:08 ? ? Approved by: Jin Brandt M.D. on 03/30/2022 at 10:10 ? MDM Narrative Medical decision making narrative: CC: 56-year-old male with brief episode of mid chest pain yesterday Complicating co-morbidities: Age greater than 55, hypertension, smoking Data collected from: Patient Medical records reviewed: Including prior ED visits for alcohol abuse and abnormal liver function Differential considered, but not limited to: Cardiac ischemia, reflux, esophageal spasm, pancreatitis, GB disease vs. pulmonary embolism versus other Exam documented above, pertinent findings include: No significant findings, no active pain, no increased work of breathing, stable vitals Lab Test results independently reviewed as above. Pertinent findings: No leukocytosis or left shift, lipase is elevated. Troponin negative Independently reviewed EKG as above Imaging studies independently reviewed: Gallstone noted with sludge, no wall thickening or pericholecystic fluid, no radiographic evidence of cholecystitis Scores Used: HEART Consultations: Dr. Salgado (Surgery) see above Re-evaluations: Patient symptom-free for duration of visit, pain clearly well controlled, patient tolerating orals Discussion: Patient with brief episode of epigastric pain after eating spaghetti. Multiple diagnoses considered but mild pancreatitis and gallbladder disease thought most likely given labs and imaging. Multiple causes of chest pain considered including PA, PE, pneumothorax, pneumonia, aortic dissection, and pleurisy. Patient reports no radiation, no diaphoresis, no provocation with exertion, and no vomiting. Heart score low, EKG nonischemic, troponin undetectable. Disposition: see below, along with detailed discharge instructions that have been reviewed with patient as well as indications for ED re-evaluation and additional outpatient follow up Discharge Plan Departure Patient Disposition: Home Clinical Impression: Cholelithiasis, Acute pancreatitis Instructions: DI for Gallstones Activity Restrictions/Additional Instructions: *You have been diagnosed with [abdominal pain due to gallbladder and pancrease] * As we discussed your history and physical exam as well as labs and imaging are very reassuring. There is no evidence of any severe diagnoses that would re quire a specific or immediate intervention. *What to do: *Please continue to take your regular medications as directed. [x ] New medication prescriptions sent to your pharmacy: [ [facility]] *Please follow up with Dr. Salgado of [facility] in 2-3 days, call for an appointment. Let them know you were seen in the Emergency Department and that we ask that you be seen in follow up. We will electronically transmit a record of today's note if your PCP is in our system *Please consider a clear liquid diet for the next 24-48 hours and then slowly advance to regular as tolerated. Also, try to avoid alcohol, nicotine, caffeine, spicy, acidic or fatty foods as this may worsen your symptoms *If you do not have a primary care provider please contact the [facility] Resource line at [phone]. They will ask some questions about your medical history and help get you set up with a doctor in the community. *Return to Emergency Department if you should have any new, worsening or concerning symptoms, such as [fever greater than 101 F, shaking chills, worseni ng pain, persistent vomiting or other bothersome symptoms] uld have any new, worsening or concerning symptoms, such as [fever greater than 101 F, shaking chills, worsening pain, persistent vomiting or other bothersome symptoms] Prescriptions: New hydrocodone-acetaminophen 5-325 mg tablet 1 tab PO Q4-6H PRN (Reason: pain) Qty: 10 0RF ondansetron 4 mg tablet,disintegrating 4 mg PO TID-QID PRN (Reason: nausea and vomiting) Qty: 10 0RF No Action losartan-hydrochlorothiazide 100-25 mg tablet 1 tab PO DAILY ketorolac 10 mg tablet 10 mg PO Q6H PRN (Reason: pain) Qty: 14 0RF Referrals: Cristela Salgado MD [Physician] - Jeffery Santiago MD [Primary Care Provider] - Stand Alone Forms: Patient Portal/API
--- NOTE | 2022-03-30 10:30 | DI.US.S_ITS ---
PROCEDURE: US ABDOMEN LIMITED INDICATIONS: EPIGASTRIC PAIN ELEVATED LIPASE TECHNIQUE: Real-time focused scanning was performed of the abdomen, with image documentation. COMPARISON: [facility], CT, CT ABDOMEN PELVIS WO CON, 03/21/2021, 14:48. [facility], US, US ABDOMEN COMPLETE, 04/19/2019, 9:16. FINDINGS: The liver demonstrates enlarged size. The liver demonstrates generalized moderately increased echogenicity. This decreases ultrasound sensitivity for detection of hepatic masses. There is a stone seen within the gallbladder neck that measures 1 cm. Sludge is also seen. The gallbladder wall is not thickened, measuring 3 mm or less. No specific pericholecystic fluid is seen. The sonographic Summers sign is negative. There is no biliary dilatation, the common bile duct measures 3 mm. The pancreas is not seen, obscured by bowel gas. IMPRESSION: A gallstone is seen, with sludge also seen. No additional sonographic signs of cholecystitis are seen. No biliary dilatation. Enlarged, fatty liver noted. Dictated by: Hari Garrison M.D. on 03/30/2022 at 10:07 Approved by: Hari Garrison M.D. on 03/30/2022 at 10:09
== END 2022-03-30 12:40 | disposition home or self-care (01) ==
PROVIDERS: Emergency Provider Emergency Medicine; PCP Family Medicine
DX: K80.20 Calculus of gallbladder without cholecystitis without obstruction (principal); K85.90 Acute pancreatitis without necrosis or infection, unspecified; R07.9 Chest pain, unspecified
CPT/HCPCS: 36415; 71046; 76705; 80053; 82550; 83690; 83880; 84484; 85025; 86140; 93005; 93010; 99284

== ENCOUNTER → 2022-12-11 08:27 | Outpatient (CLI) | payer OTHER, SELFPAY ==
--- NOTE | 2022-12-11 | DI.MRI.S_ITS ---
PROCEDURE: MR LUMBAR SPINE WO CON INDICATIONS: Sciatica, right side TECHNIQUE: Noncontrast sagittal T1 spin echo and T2 fast echo, sagittal STIR, and T2 fast spin echo through the lumbar spine. In cases with scoliosis, additional coronal T2 fast spin echo may be performed. COMPARISON: None. FINDINGS: Image quality: Excellent. Alignment and Curvature: There is normal bony alignment. Bone Marrow: Marrow is of normal overall signal. No acute vertebral body compression fractures. Chronic anterior vertebral body height loss of T11 and T12. Spinal Cord: Conus medullaris terminates at the L1 level. Visualized cord demonstrates normal signal and size. Paraspinous Soft Tissues: No paravertebral masses. T12-L1: Chronic disc height loss. Minimal disc bulge. No canal stenosis or foraminal stenosis. L1-L2: No canal stenosis or foraminal stenosis. L2-L3: Facet hypertrophy. No canal stenosis or foraminal stenosis. L3-L4: Disc bulge. Facet hypertrophy. Borderline canal stenosis. No foraminal stenosis. L4-L5: Mild chronic disc height loss. Diffuse disc bulge, eccentric to the right. Flattening on the ventral aspect of the thecal sac. Facet hypertrophy. Epidural lipomatosis. Pcrd-qh-kqvfhyvi canal stenosis. Rqqc-ul-hjqjwkts bilateral foraminal stenosis. L5-S1: Disc bulge. Facet hypertrophy. No canal stenosis. Moderate right foraminal narrowing with mild flattening deformity on the exiting right L5 nerve root. Mild to moderate left foraminal narrowing. IMPRESSION: 1. There is underlying multilevel lower lumbar facet hypertrophy. 2. Canal stenosis is borderline at L3-L4 and jucs-au-vllgurmm at L4-L5. 3. There is moderate right foraminal narrowing at L5-S1. It Dictated by: Da Talbot M.D. on 12/11/2022 at 11:54 Approved by: Da Talbot M.D. on 12/11/2022 at 12:01
== END ==
PROVIDERS: PCP Family Medicine; Referring Provider Family Medicine; Visit Provider Family Medicine
DX: M54.31 Sciatica, right side (principal); M47.816 Spondylosis without myelopathy or radiculopathy, lumbar region; M47.817 Spondylosis without myelopathy or radiculopathy, lumbosacral region; M48.061 Spinal stenosis, lumbar region without neurogenic claudication; M48.07 Spinal stenosis, lumbosacral region
CPT/HCPCS: 72148

== ENCOUNTER → 2023-05-04 08:24 | Outpatient (CLI) | payer OTHER, MEDICAID, SELFPAY ==
--- NOTE | 2023-05-04 08:27 | DI.RAD.S_ITS ---
PROCEDURE: XR FOOT RT MIN 3V INDICATIONS: FEET PAIN TECHNIQUE: 3 views of the foot were acquired. COMPARISON: None. FINDINGS: Bones: No acute fractures or dislocations. No suspicious bony lesions. Polyarticular degenerative changes of the interphalangeal joints of the right foot. Moderate degenerative changes of the dorsal right midfoot. Plantar calcaneal and retrocalcaneal enthesophytes. Bipartite medial sesamoid bone. Soft tissues: No tibiotalar joint effusion. Achilles tendon appears normal. IMPRESSION: No acute bony abnormality. Polyarticular background degenerative changes of the right foot with plantar calcaneal and retrocalcaneal enthesophytes. Dictated by: Henrry Cagle M.D. on 05/04/2023 at 11:04 Approved by: Henrry Cagle M.D. on 05/04/2023 at 11:05
--- NOTE | 2023-05-04 08:27 | DI.RAD.S_ITS ---
PROCEDURE: XR FOOT LT MIN 3V INDICATIONS: FEET PAIN TECHNIQUE: 3 views of the foot were acquired. COMPARISON: None. FINDINGS: Bones: No fractures or dislocations. No suspicious bony lesions. Polyarticular degenerative changes of the interphalangeal joints of the left foot. Degenerative changes of the 1st metatarsophalangeal joint. Mild degenerative changes of the dorsal midfoot. Prominent plantar calcaneal enthesophyte. Soft tissues: No tibiotalar joint effusion. Achilles tendon appears normal. IMPRESSION: No acute bony abnormality. Polyarticular background degenerative changes of the left foot most prominent in the metatarsophalangeal joint of the left great toe. Prominent plantar calcaneal enthesophyte. Dictated by: Henrry Cagle M.D. on 05/04/2023 at 11:05 Approved by: Henrry Cagle M.D. on 05/04/2023 at 11:06
== END ==
PROVIDERS: PCP Family Medicine; Referring Provider Family Medicine; Visit Provider Family Medicine
DX: M77.32 Calcaneal spur, left foot (principal); M77.31 Calcaneal spur, right foot; M25.571 Pain in right ankle and joints of right foot; M79.671 Pain in right foot; M79.672 Pain in left foot
CPT/HCPCS: 73630

== ENCOUNTER → 2023-06-18 12:14 | Outpatient (CLI) | payer OTHER, MEDICAID, SELFPAY ==
--- NOTE | 2023-06-18 12:17 | DI.RAD.S_ITS ---
PROCEDURE: XR CERVICAL SPINE 2V OR 3V INDICATIONS: BACK PAIN TECHNIQUE: Full view(s) of the cervical spine were acquired. COMPARISON: None. FINDINGS: Bones: No fractures or dislocations to the C7 level. The lateral masses of C1 appear intact on the odontoid view. No suspicious bony lesions. Grade 1 anterolisthesis at C2-C3, C3-C4 and C4-C5. Multilevel degenerative disease, moderate at C5-C6, and mild at other levels. Multilevel bilateral facet arthropathy, severe at C2-C3, C3-C4 and C4-C5. Soft tissues: No prevertebral soft tissue swelling. IMPRESSION: 1. Degenerative disc and facet disease. Dictated by: Chad Vargas M.D. on 06/19/2023 at 7:34 Approved by: Chad Vargas M.D. on 06/19/2023 at 8:11
== END ==
LOC: RAD 12:15
PROVIDERS: PCP Family Medicine; Referring Provider Family Medicine; Visit Provider Family Medicine
DX: M47.22 Other spondylosis with radiculopathy, cervical region (principal)
CPT/HCPCS: 72040

== ENCOUNTER 2023-08-18 08:31 | Outpatient (CLI) | payer OTHER, MEDICAID, SELFPAY ==
--- NOTE | 2023-08-18 08:33 | DI.RAD.S_ITS ---
PROCEDURE: XR LUMBAR SPINE MIN 4V INDICATIONS: BACK PAIN TECHNIQUE: 5 views of the lumbar spine were acquired, including bilateral oblique views. COMPARISON: [facility], CR, XR LUMBAR SPINE 2-3V, 05/10/2018, 8:42. FINDINGS: Bones: 5 nonrib-bearing vertebrae are present. There is normal bony alignment. No vertebral body compression fractures. No suspicious bony lesions. Multilevel degenerative disc space loss and lower lumbar facet arthropathy. Calcified disc bulges at L3-L4 through L5-S1. Soft tissues: Overlying bowel gas pattern is normal. No suspicious soft tissue calcifications. Oblique images: No pars defects. IMPRESSION: Lumbar degenerative change. No acute bony abnormality. Dictated by: Da Talbot M.D. on 08/18/2023 at 10:01 Approved by: Da Talbot M.D. on 08/18/2023 at 10:02
[2023-08-18 08:45] VITALS: BP 130/86; PULSE 86; RESP 18; TEMP 36.5; O2SAT 96
[2023-08-18 09:04] VITALS: BP 154/100; PULSE 68; RESP 19; O2SAT 96
[2023-08-18] MEDS: DEXAMETHASONE 10 MG/ML VIAL INJ (09:06)
[2023-08-18] MEDS: iopamidoL 15 ML VIAL 3 ML INJ (09:07)
[2023-08-18 09:09] VITALS: BP 151/86; PULSE 68; RESP 12; O2SAT 96
[2023-08-18 09:13] VITALS: BP 148/82; PULSE 71; RESP 12; O2SAT 95
[2023-08-18 09:18] VITALS: BP 132/90; PULSE 67; RESP 18; O2SAT 99
--- NOTE | 2023-08-18 09:20 | P.PCN_ITS ---
Date/Time/Diagnoses Date of procedure: 08/18/23 Time of procedure: 09:00 Procedure Notes Physician: Landon Colon Total Fluoroscopy time (seconds): 18 Total sedation minutes: 0 Procedure in detail & Post-procedure care: L4-5 Interlaminar Epidural Steroid Injection Indications: Zurdo is presenting for treatment of lumbar radiculopathy with low back and leg pain. Preoperative diagnosis: Lumbar radiculopathy Postoperative diagnosis: Same Focused Examination: Ax3 Mood and affect are normal Vital Signs: VSS Consent: Following review of allergies and potential side effects/complications, including, but not necessarily limited to, infection, allergic reaction, local tissue breakdown, stroke, temporary or permanent nerve injury, paralysis, and possible , the patient indicated that they understood and agreed to proceed.? An informed consent document was signed by the patient, witnessed by a nurse and placed in the patient's chart.? Additionally, other treatment options including medications and physical therapy were reviewed with the patient. All questions were answered. Site was then marked. Anesthesia: Local Position: Prone Monitoring: NIBP, Pulse oximetry, 3 lead EKG Needle used: 18 gauge, 5? Tuohy Contrast: Isovue 300M Injectate: Dexamethasone 10 mg with 1% lidocaine 2 mL Technique: The skin was prepped with chloraprep and then draped in a sterile fashion. Time out was performed as per protocol. Oxygen applied via NC. Skin and subcutaneous structures of the needle entry site was then infiltrated with 3 mL of lidocaine 1%. Under AP, lateral and contralateral oblique fluoroscopic control, the Tuohy needle was guided into the L4-5 epidural space. The space was accessed with loss of resistance technique. Isovue 300M was then injected and the spread was consistent with the epidural space. There was no evidence for intravascular or intrathecal uptake. After negative aspiration, the above- mentioned injectate was then slowly administered and the needle withdrawn. The patient expressed no unusual discomfort or paresthesias during the injection. Band-Aids applied to injection sites. EBL: less than 1 ml Complications: None Post Procedure: Patient was taken to the recovery and monitored. The patient was provided a Pain Log to continue to record the patient's response to the target- specific procedure prior to the patient's follow-up visit with the referring physician. Patient was stable upon discharge. Detailed post procedure instructions were provided. Patient was asked to call in the event of worsening pain, fever, weakness, numbness or bladder or bowel incontinence.
--- NOTE | 2023-08-18 09:30 | DI.RAD.S_ITS ---
PROCEDURE: PAIN L INTERLAMINAR/CAUDAL INJ INDICATIONS: L4-5 interlaminar SUSAN COMPARISON: None. FINDINGS: Fluoroscopic spot filming was performed to verify placement of spinal needles at the L4-5 level(s), as labeled on the films. Appropriate location(s) of the needle tip(s) was confirmed by injection of iodinated contrast. IMPRESSION: Fluoroscopic guidance utilized for an epidural injection at L4-5. Dictated by: Milton Chaudhry M.D. on 08/18/2023 at 11:29 Approved by: Milton Chaudhry M.D. on 08/18/2023 at 11:30
== END 2023-08-18 09:25 | disposition home or self-care (01) ==
LOC: RAD 08:32
PROVIDERS: PCP Family Medicine; Referring Provider Anesthesiology; Visit Provider Anesthesiology
DX: M54.16 Radiculopathy, lumbar region (principal); M47.816 Spondylosis without myelopathy or radiculopathy, lumbar region; M54.9 Dorsalgia, unspecified
CPT/HCPCS: 62323; 72110; J1100

== ENCOUNTER → 2023-09-09 08:01 | Outpatient (CLI) | payer OTHER, MEDICAID, SELFPAY ==
--- NOTE | 2023-09-09 08:02 | DI.MRI.S_ITS ---
PROCEDURE: MR CERVICAL SPINE WO CON INDICATIONS: Cervical radiculopathy TECHNIQUE: Noncontrast sagittal T1 spin echo and T2 fast spin echo, sagittal STIR, foraminal oblique sagittal T2 fast spin echo, and axial gradient echo or T2 fast spin echo through the cervical spine. COMPARISON: None. FINDINGS: Image quality: Excellent. Alignment and Curvature: There is normal bony alignment. Bone Marrow: Marrow demonstrates normal overall signal. Spinal Cord: Visualized spinal cord has normal size and signal. No cerebellar tonsillar herniation. Paraspinous Soft Tissues: No paravertebral masses. Prevertebral soft tissues are normal in thickness. The right vertebral artery is small in caliber and demonstrates loss of flow void at the level of C1. Intervertebral disc: Multilevel disc desiccation with areas of height loss. C2-C3: No spinal canal stenosis. There is moderate to severe bilateral stenosis. Bilateral facet arthropathy and uncovertebral joint arthropathy. C3-C4: No spinal canal stenosis. Moderate to severe left foraminal stenosis. Ufsw-yo-[id number] right foraminal stenosis. There is bilateral facet arthropathy and uncovertebral joint arthropathy. C4-C5: No spinal canal stenosis. There is moderate right foraminal stenosis and fokn-dd-jytgpbfr left foraminal stenosis. There is bilateral facet arthropathy and uncovertebral joint arthropathy. C5-C6: There is a small central disc protrusion that impinges on the ventral spinal cord. Moderate to severe left foraminal stenosis and moderate right foraminal stenosis. There is bilateral facet arthropathy and uncovertebral joint arthropathy. C6-C7: Disc osteophyte complex results in moderate spinal canal stenosis. Moderate to severe left foraminal stenosis and moderate right foraminal stenosis. There is bilateral facet arthropathy and uncovertebral joint arthropathy. C7-T1: No spinal canal stenosis. Mild narrowing of the left foramen. The right foramen is patent. Bilateral facet arthropathy seen in the uncovertebral joint arthropathy. IMPRESSION: 1. There is multilevel degenerative disc disease as described above. The worst level is at C5-C6 which demonstrates a small central disc protrusion that impinges on the ventral spinal cord. There is also moderate to severe left foraminal stenosis and moderate right foraminal stenosis at the C5-C6 level. 2. The distal right vertebral artery is small and demonstrates loss of flow void. Finding is concerning for an occluded vessel. A CT or MRA of the neck can be performed for further characterization if clinically indicated. Dictated by: Arun Liang M.D. on 09/09/2023 at 13:47 Approved by: Arun Liang M.D. on 09/09/2023 at 14:06
== END ==
PROVIDERS: PCP Family Medicine; Referring Provider Anesthesiology; Visit Provider Anesthesiology
DX: M47.22 Other spondylosis with radiculopathy, cervical region (principal); M50.122 Cervical disc disorder at C5-C6 level with radiculopathy; M48.02 Spinal stenosis, cervical region; G89.29 Other chronic pain
CPT/HCPCS: 72141

== ENCOUNTER → 2024-01-04 10:04 | Outpatient (CLI) | payer OTHER, MEDICAID, SELFPAY ==
--- NOTE | 2024-01-04 10:05 | DI.CT.S_ITS ---
PROCEDURE: CT HEAD/BRAIN WO CON INDICATIONS: New daily persistent headache (NDPH) TECHNIQUE: Noncontrast 4.5 mm thick angled axial sections acquired from the foramen magnum to the vertex, with coronal and sagittal reformats. For radiation dose reduction, the following was used: automated exposure control, adjustment of mA and/or kV according to patient size. COMPARISON: None. FINDINGS: Image quality: Mild streak artifact can be seen through the skull base. CSF spaces: Basal cisterns are patent. No extra-axial fluid collections. Ventricles are normal in size and shape. Brain: No midline shift. No intracranial masses or hemorrhage. Zhao-white matter interface is normal. Skull and face: Calvarium and visualized facial bones are intact, without suspicious lesions. Sinuses: Visualized sinuses and mastoids are clear. IMPRESSION: Head CT within normal limits, without a cause of the patient's presenting history identified. To the limits of this noncontrast study, no findings of intracranial masses or mass effect can be seen. Dictated by: Hari Garrison M.D. on 01/04/2024 at 9:50 Approved by: Hari Garrison M.D. on 01/04/2024 at 9:50
== END ==
PROVIDERS: PCP Family Medicine; Referring Provider Family Medicine; Visit Provider Family Medicine
DX: G44.52 New daily persistent headache (NDPH) (principal)
CPT/HCPCS: 70450